=== PATIENT | female | born 1980 | race Caucasian/White ===

== ENCOUNTER 2016-11-17 17:51 | Emergency (ER) | payer SELFPAY ==
[2016-11-17 18:02] VITALS: BP 143/88; BMI 25.2
[2016-11-17] MEDS ORDERED: PHENERGAN INJ 25 MG IM ONE (18:16)
[2016-11-17] MEDS ORDERED: DEMEROL INJ IM ONE (18:16)
[2016-11-17] MEDS ORDERED: DEMEROL INJ ONE (18:22)
[2016-11-17] MEDS ORDERED: PHENERGAN INJ 25 MG ONE (18:22)
[2016-11-17] MEDS ORDERED: XYLOCAINE 2% and EPINEPHRINE 1:100,000 ONE (18:28)
--- NOTE | 2016-11-17 18:37 | DR.GENAD ---
HPI - PCP Primary Care Physician: none - HPI Comment HPI Comment: Worsening swelling and painful sore at the top of her buttocks for the past two days; she put in a pin in it yesterday to release the fluid and it' s worse today; she started a left over abx from another "cellulitis" that started with a c yesterday but developed n/v x several episodes with the last earlier this morning; she has had little improvement since taking it; tylenol # 3 hasn't helped the pain - Complaint/Symptoms Chief Complaint:: "abscess at the top of my butt, glands swelling, vomiting, fever - Source History Provided: Patient - Mode of Arrival Mode of Arrival: Ambulatory - Timing Onset of Chief Complaint: 11/14/16 PMH - PMH Past Medical History: Yes Past Medical History: Anxiety Past Surgical History: Yes Surgical History: Cholecystectomy, Tonsillectomy - Family History History of Family Medical Conditions: Yes Family Medical History: Cancer, Hypertension - Social History Does patient currently use any type of tobacco product: Yes Have you used tobacco products in the last 12 months: Yes Type of Tobacco Use: Cigarettes How many years tobacco product used: 15 Does any household member use tobacco: No Alcohol Use: Occasionally Do you use any recreational Drugs:: No Lives With: Family Lives Where: Home - infectious screening In the last 2 months have you had wt loss of >10#?: NO Have you had fever, night sweats or hemotysis?: No Have you traveled outside the country in the last 6 months?: No Isolation: Standard ROS - Review of Systems Constitutional: No Symptoms Reported Respiratoy: No Symptoms Reported Cardiovascular: No Symptoms Reported Gastrointestinal/Abdominal: No Symptoms Reported Genitourinary: No Symptoms Reported Neurological: No Symptoms Reported Musculoskeletal: No Symptoms Reported Integumentary: See HPI PE - Vital Signs Vitals: Temperature 98 F Pulse Rate 100 Respiratory Rate 20 Blood Pressure 143/88 O2 Sat by Pulse Oximetry 100 - General Limitations: No Limitations General Appearance: Alert, Other (in pain) - Head Head Exam: Normal Inspection - Eyes Eye exam: Normal Appearance - Respiratory Respiratory Exam: Bilateral Clear to Auscultation - Cardiovascular Cardiovascular Exam: Regular Rate, Normal Rhythm - Abdominal Exam Abdominal Exam: Normal Inspection - Extremities Extremities Exam: Normal Inspection - Neurologic Neurological Exam: Alert, Oriented X3 - Skin Skin Exam: Warm (firm 2cm tender red nodule at crest of buttocks, induration extends into the left buttock; tender, shoddy left groin lad) Procedures - Procedure Comments Procedures: site cleaned with betadine and injected w/5cc lidocaine w/epi; incision made with 15-20 cc purulent/minimal bloody material released; pt tolerated well - Incision and Drainage Blade Size: 11 I & D Procedure: betadine prep, sterile drapes applied - Diagnosis Discharge Problem: Abscess - Discharge Plan Disposition: HOME, SELF-CARE Condition: Stable Prescriptions: Hydrocodone-Acet 7.5 mg/325 mg [NORCO 7.5 MG/325 MG *] 1 tab PO Q6H PRN #14 tab PRN Reason: Pain Sulfamethoxazole-Trimethoprim [BACTRIM DS TAB 800/160 MG *] 1 tab PO BID #20 tab - Follow ups/Referrals Follow ups/Referrals: RE JUÁREZ [STAFF PHYSICIAN] - 3 days - Instructions Instructions: Abscess Additional Instructions: keep loosely bandaged as long as there is drainage follow up jonathan if unable to hold medication down finish ALL the antibiotic
[2016-11-17] MEDS ORDERED: XYLOCAINE 2% and EPINEPHRINE 1:100,000 IM SCH (19:00)
[2016-11-17] MEDS ORDERED: ROCEPHIN VIAL 1 GM IM ONE (19:08)
[2016-11-17] MEDS ORDERED: XYLOCAINE 1 % (PLAIN) ONE (19:14)
[2016-11-17] MEDS ORDERED: ROCEPHIN VIAL 1 GM ONE (19:15)
== END 2016-11-17 19:43 | disposition home or self-care (01) ==
LOC: ER 18:04
PROC: 0H98X0Z Drainage of Buttock Skin with Drainage Device, External Approach (ICD-10-PCS; principal; 2016-11-17)
DX: L02.31 Cutaneous abscess of buttock (principal)
CPT/HCPCS: 10060; 87070; 87075; 87077; 87186; 87205; 96372; 99282; 99283; J0696; J2001; J2175; J2550

== ENCOUNTER 2017-02-07 22:13 | Emergency (ER) | payer SELFPAY ==
[2017-02-07 22:23] VITALS: BP 127/84; BMI 26.1
--- NOTE | 2017-02-07 23:10 | DR.GENAD ---
HPI - PCP Primary Care Physician: NFD - Complaint/Symptoms Chief Complaint Doctors Comments: REDNESS, SWELLING AND PAIN RIGHT INNER FOREARM. Chief Complaint:: "Not sure but something has bite me and it just seems to be getting worst." - Nurses notes reviewed Nurses Notes Review: Yes - Source History Provided: Patient - Mode of Arrival Mode of Arrival: Ambulatory - Timing Onset of Chief Complaint: 02/05/17 Came on: Suddenly - Duration Duration: Constant Duration: Days - Severity Severity: Moderate PMH - PMH Past Medical History: Yes Past Medical History: Anxiety Past Surgical History: Yes Surgical History: Cholecystectomy, Tonsillectomy - Family History History of Family Medical Conditions: Yes Family Medical History: Cancer, Hypertension - Social History Alcohol Use: None Do you use any recreational Drugs:: No Lives With: Family Lives Where: Home - infectious screening Have you traveled outside the country in the last 6 months?: No ROS - Review of Systems Constitutional: No Symptoms Reported Eyes: No Symptoms Reported ENTM: No Symptoms Reported Respiratoy: No Symptoms Reported Cardiovascular: No Symptoms Reported Gastrointestinal/Abdominal: No Symptoms Reported Genitourinary: No Symptoms Reported Neurological: No Symptoms Reported Musculoskeletal: Right, Forearm Integumentary: Lesions (CELLULITIS RIGHT INNER FOREARM.) Hematologic/Lymphatic: No Symptoms Reported Endocrine: No Symptoms Reported All Other Systems: Reviewed and Negative PE - Vital Signs Vitals: Temperature 97.6 F Pulse Rate 96 Respiratory Rate 18 Blood Pressure 127/84 O2 Sat by Pulse Oximetry 100 - General Limitations: No Limitations General Appearance: Alert - Head Head Exam: Normal Inspection - Eyes Eye exam: Normal Appearance - ENT ENT Exam: Normal External Ear Exam External Ear Exam: Normal External Inspection Mouth Exam: Normal Inspection Throat Exam: Normal Inspection - Neck Neck Exam: Trachea Midline - Chest Chest Inspection: Symmetric Chest Wall Rise - Respiratory Respiratory Exam: Normal Lung Sounds Bilat Respiratory Exam: Bilateral Clear to Auscultation - Cardiovascular Cardiovascular Exam: Regular Rate, Normal Rhythm, Normal Heart Sounds - Abdominal Exam Abdominal Exam: Normal Inspection - Extremities Extremities Exam: Tenderness (REDNESS INNER DISTAL RIGHT FOREARM WITH TENDERNESS.) - Back Back Exam: Normal Inspection - Neurologic Neurological Exam: Alert, Oriented X3 - Psychiatric Psychiatric Exam: Normal Affect, Normal Mood - Skin Skin Exam: Erythema (CELLULITIS INNER RT ARM.) MDM - Differential Diagnosis Differential Diagnosis: CELLULITIS Course - Treatment Treatment: SEE ORDERS - Education/Counseling Education/Counseling: Patient, Education Educated On: Diagnosis, Needs for Follow Up - Diagnosis Discharge Problem: Cellulitis Qualifiers: Site of cellulitis: extremity Site of cellulitis of extremity: upper extremity Laterality: right Qualified Code(s): L03.113 - Cellulitis of right upper limb - Discharge Plan Disposition: 01 HOME, SELF-CARE Condition: Stable Prescriptions: Acetaminophen with Codeine [Tylenol/Codeine #3 300-30 mg] 1 tab PO Q4-6H PRN # 15 tab PRN Reason: Pain Ibuprofen [MOTRIN TAB 600 MG *] 600 mg PO TID PRN #20 tab PRN Reason: Pain/Inflammation Sulfamethoxazole-Trimethoprim [BACTRIM DS TAB 800/160 MG *] 1 tab PO Q8H #20 tab - Follow ups/Referrals Follow ups/Referrals: NFD,None [Primary Care Provider] - 2 days CLEO GAMBINO [STAFF PHYSICIAN] - 2 days - Instructions Instructions: Cellulitis Additional Instructions: RETURN TO ED IF WORSE.
[2017-02-07] MEDS ORDERED: BACTRIM DS TAB PO ONE ×2 (23:11→23:14)
[2017-02-07] MEDS ORDERED: TYLENOL #3 TAB (W/CODEINE) PO ONE ×2 (23:11→23:14)
[2017-02-07] MEDS ORDERED: MOTRIN TAB 600 MG PO ONE ×2 (23:12→23:14)
== END 2017-02-07 23:32 | disposition home or self-care (01) ==
LOC: ER 22:26
DX: L03.113 Cellulitis of right upper limb (principal)
CPT/HCPCS: 99282

== ENCOUNTER 2017-02-13 16:45 | Emergency (ER) | payer SELFPAY ==
[2017-02-13 16:50] VITALS: BP 121/98; BMI 26.1
--- NOTE | 2017-02-13 17:01 | DR.GENAD ---
HPI - PCP Primary Care Physician: nfd - Complaint/Symptoms Chief Complaint:: has a spider bite on her right wrist and was seen in the er last week but now she is weak and nauseated. she stated she feels bad. - Nurses notes reviewed Nurses Notes Review: Yes - Source History Provided: Patient - Mode of Arrival Mode of Arrival: Ambulatory - Timing Onset of Chief Complaint: 02/09/17 Came on: Gradually - Duration Duration: Constant How lon Duration: Days - Location Location: right wrist - Severity Severity: Moderate - Modifying Factors Worsens:: activity - Associated Signs and Symptoms Associated Signs and Symptoms: nausea - Other History Other History: on bactrim for spider bite PMH - PMH Past Medical History: Yes Past Medical History: Anxiety Past Surgical History: Yes Surgical History: Cholecystectomy, Tonsillectomy - Family History History of Family Medical Conditions: Yes Family Medical History: Cancer, Hypertension - Social History Does patient currently use any type of tobacco product: Yes Have you used tobacco products in the last 12 months: Yes Type of Tobacco Use: Cigarettes How many years tobacco product used: 10 Does any household member use tobacco: No Alcohol Use: Rarely Do you use any recreational Drugs:: No Lives With: Family Lives Where: Home - infectious screening In the last 2 months have you had wt loss of >10#?: NO Have you had fever, night sweats or hemotysis?: No Have you traveled outside the country in the last 6 months?: No Isolation: Standard ROS - Review of Systems Constitutional: No Symptoms Reported Eyes: No Symptoms Reported ENTM: No Symptoms Reported Respiratoy: No Symptoms Reported Cardiovascular: No Symptoms Reported Gastrointestinal/Abdominal: Nausea Genitourinary: No Symptoms Reported Neurological: Weakness Musculoskeletal: No Symptoms Reported Integumentary: No Symptoms Reported Hematologic/Lymphatic: No Symptoms Reported Endocrine: No Symptoms Reported Psychiatric: Anxiety PE - Vital Signs Vitals: Temperature 97.9 F Pulse Rate 114 Respiratory Rate 16 Blood Pressure 121/98 O2 Sat by Pulse Oximetry 100 ROR - Labs Reviewed Result Diagrams: 02/13/17 17:17 02/13/17 17:17 Laboratory: WBC 8.8 X10^3/uL (3.6-10.0) 02/13/17 17:17 RBC 4.55 X10^6/uL (3.5-5.4) 02/13/17 17:17 Hgb 14.4 g/dL (12.0-16.0) 02/13/17 17:17 Hct 42.3 % (36.0-47.0) 02/13/17 17:17 MCV 92.9 fL (80.0-100.0) 02/13/17 17:17 MCH 31.7 pg (27.0-34.0) 02/13/17 17:17 MCHC 34.1 g/dL (33.0-35.0) 02/13/17 17:17 RDW 12.8 % (11.6-16.5) 02/13/17 17:17 Plt Count 313 X10^3/uL (150.0-450.0) 02/13/17 17:17 MPV 8.4 fL (7.4-11.0) 02/13/17 17:17 Neut % 59.1 % (42.0-75.0) 02/13/17 17:17 Lymph % 29.2 % (21.0-51.0) 02/13/17 17:17 [place] % 8.5 % (0.0-13.0) 02/13/17 17:17 Eos % 2.1 % (0.9-2.9) 02/13/17 17:17 Baso % 1.1 % (0.2-1.0) H 02/13/17 17:17 Neut # 5.2 x10^3/uL (2.2-4.8) H 02/13/17 17:17 Lymph # 2.6 X10^3/uL (1.3-2.9) 02/13/17 17:17 [place] # 0.8 x10^3/uL (0.3-0.8) 02/13/17 17:17 Eos # 0.2 x10^3/uL (0.0-0.2) 02/13/17 17:17 Baso # 0.1 X10^3/uL (0.0-0.1) 02/13/17 17:17 Absolute Nucleated RBC 0.0 /100WBC 02/13/17 17:17 Sodium 136 mmol/L (136-145) 02/13/17 17:17 Corrected Sodium TNP 02/13/17 17:17 Potassium 4.0 mmol/L (3.5-5.1) 02/13/17 17:17 Chloride 101 mmol/L (98-107) 02/13/17 17:17 Carbon Dioxide 28.6 mmol/L (21-32) 02/13/17 17:17 BUN 8 mg/dL (7-18) 02/13/17 17:17 Creatinine 0.73 mg/dL (0.55-1.02) 02/13/17 17:17 Est GFR (MDRD) Af Amer > 60 (>60) 02/13/17 17:17 Est GFR (MDRD) Non-Af > 60 (>60) 02/13/17 17:17 Glucose 83 mg/dL (65-99) 02/13/17 17:17 Calcium 8.9 mg/dL (8.5-10.1) 02/13/17 17:17 Corrected Calcium TNP 02/13/17 17:17 Total Bilirubin 0.20 mg/dL (0.2-1.0) 02/13/17 17:17 AST 15 Units/L (15-37) 02/13/17 17:17 ALT 19 Units/L (12-78) 02/13/17 17:17 Alkaline Phosphatase 86 Units/L (46-116) 02/13/17 17:17 Total Protein 8.0 g/dL (6.4-8.2) 02/13/17 17:17 Albumin 3.8 g/dL (3.4-5.0) 02/13/17 17:17 Globulin 4.2 g/dL (2.5-4.5) 02/13/17 17:17 Albumin/Globulin Ratio 0.9 Ratio (1.1-2.1) L 02/13/17 17:17 Specimen Type Clean catch urine 02/13/17 17:17 Urine Color Yellow (YELLOW) 02/13/17 17:17 Urine Appearance Clear (CLEAR) 02/13/17 17:17 Urine pH 5.0 (5.0 - 8.0) 02/13/17 17:17 Ur Specific [place] 1.015 (1.000-1.030) 02/13/17 17:17 Urine Protein Negative (NEGATIVE) 02/13/17 17:17 Urine Glucose (UA) 3+ (NEGATIVE) 02/13/17 17:17 Urine Ketones Negative (NEGATIVE) 02/13/17 17:17 Urine Occult Blood 1+ (NEGATIVE) 02/13/17 17:17 Urine Nitrite Negative (NEGATIVE) 02/13/17 17:17 Urine Bilirubin Negative (NEGATIVE) 02/13/17 17:17 Urine Urobilinogen Normal (NORMAL) 02/13/17 17:17 Ur Leukocyte Esterase Negative (NEGATIVE) 02/13/17 17:17 Urine RBC 0-2 /HPF (NEGATIVE) 02/13/17 17:17 Urine WBC None seen /HPF (NEGATIVE) 02/13/17 17:17 Ur Squamous Epith Cells Numerous /HPF (NEGATIVE) 02/13/17 17:17 Ur Transition Epith Cell Rare /HPF (NEGATIVE) 02/13/17 17:17 Urine Bacteria Trace /HPF (NEGATIVE) 02/13/17 17:17 Ur Culture Indicated? No/not indicated 02/13/17 17:17 Urine Opiates Screen Negative (NEG=<300) 02/13/17 17:17 Urine Methadone Screen Negative (NEG=<300) 02/13/17 17:17 Ur Barbiturates Screen Negative (NEG=<200) 02/13/17 17:17 Ur Phencyclidine Scrn Negative (NEG=<25) 02/13/17 17:17 Ur Amphetamines Screen Positive (NEG=<1000) A 02/13/17 17:17 U Benzodiazepines Scrn Negative (NEG=<200) 02/13/17 17:17 Urine Cocaine Screen Negative (NEG=<300) 02/13/17 17:17 U Marijuana (THC) Screen Negative (NEG=<50) 02/13/17 17:17 - Diagnosis Discharge Problem: Amphetamine abuse - Discharge Plan Condition: Stable Prescriptions: Ondansetron [Zofran Odt] 4 mg PO Q8H PRN #12 tab PRN Reason: Nausea/Vomiting - Follow ups/Referrals Follow ups/Referrals: NFD,None [Primary Care Provider] - 3 days - Instructions
[2017-02-13] MEDS ORDERED: ZOFRAN TAB 4 MG PO ONE (17:08)
[2017-02-13] MEDS ORDERED: ZOFRAN TAB 4 MG ONE (17:11)
[2017-02-13 17:29] LABS: BASOPHILS # (AUTO) 0.1 X10^3/uL (0.0-0.1); BASOPHILS % (AUTO) 1.1 % (0.2-1.0); EOSINOPHILS # (AUTO) 0.2 x10^3/uL (0.0-0.2); EOSINOPHILS % (AUTO) 2.1 % (0.9-2.9); HEMATOCRIT 42.3 % (36.0-47.0); HEMOGLOBIN 14.4 g/dL (12.0-16.0); LYMPHOCYTES # (AUTO) 2.6 X10^3/uL (1.3-2.9); LYMPHOCYTES % (AUTO) 29.2 % (21.0-51.0); MEAN CORPUSCULAR HEMOGLOBIN 31.7 pg (27.0-34.0); MEAN CORPUSCULAR HGB CONC 34.1 g/dL (33.0-35.0); MEAN CORPUSCULAR VOLUME 92.9 fL (80.0-100.0); MEAN PLATELET VOLUME 8.4 fL (7.4-11.0); MONOCYTES # (AUTO) 0.8 x10^3/uL (0.3-0.8); MONOCYTES % (AUTO) 8.5 % (0.0-13.0); NEUTROPHILS # (AUTO) 5.2 x10^3/uL (2.2-4.8); NEUTROPHILS % (AUTO) 59.1 % (42.0-75.0); PLATELET COUNT 313 X10^3/uL (150.0-450.0); RED BLOOD COUNT 4.55 X10^6/uL (3.5-5.4); RED CELL DISTRIBUTION WIDTH 12.8 % (11.6-16.5); WHITE BLOOD COUNT 8.8 X10^3/uL (3.6-10.0)
[2017-02-13 17:34] LABS: BILIRUBIN,URINE NEGATIVE (NEGATIVE); BLOOD/HEMOGLOBIN,URINE 1+ (NEGATIVE); GLUCOSE, URINE 3+ (NEGATIVE); KETONES,URINE NEGATIVE (NEGATIVE); LEUKOCYTE ESTERASE ,URINE NEGATIVE (NEGATIVE); NITRITES,URINE NEGATIVE (NEGATIVE); PROTEIN,URINE NEGATIVE (NEGATIVE); UROBILINOGEN,URINE NORMAL (NORMAL)
[2017-02-13 17:41] LABS: APPEARANCE,URINE CLEAR (CLEAR); BACTERIA,URINE TRACE /HPF (NEGATIVE); COLOR,URINE YELLOW (YELLOW); RBC,URINE 0-2 /HPF (NEGATIVE); SQUAMOUS EPITHELIAL CELL,UR NUMEROUS /HPF (NEGATIVE)
[2017-02-13 17:42] LABS: ALANINE AMINOTRANSFERASE 19 Units/L (12-78); ALBUMIN 3.8 g/dL (3.4-5.0); ALKALINE PHOSPHATASE 86 Units/L (46-116); ASPARTATE AMINO TRANSFERASE 15 Units/L (15-37); BLOOD UREA NITROGEN 8 mg/dL (7-18); CALCIUM 8.9 mg/dL (8.5-10.1); CARBON DIOXIDE 28.6 mmol/L (21-32); CHLORIDE 101 mmol/L (98-107); CREATININE 0.73 mg/dL (0.55-1.02); GLUCOSE 83 mg/dL (65-99); SODIUM 136 mmol/L (136-145); eGFR BLACK RACES > 60 (>60); eGFR NON BLACK RACES > 60 (>60)
== END 2017-02-13 17:59 | disposition home or self-care (01) ==
LOC: ER 16:52
DX: F15.10 Other stimulant abuse, uncomplicated (principal); W57.XXXA Bitten or stung by nonvenomous insect and other nonvenomous arthropods, initial encounter
CPT/HCPCS: 36415; 80053; 80307; 81001; 85025; 99282; S0181; G0434

== ENCOUNTER 2017-02-26 13:12 | Emergency (ER) | payer SELFPAY ==
[2017-02-26 13:18] VITALS: BP 119/92; BMI 26.8
--- NOTE | 2017-02-26 13:58 | DR.NAUSEAF ---
HPI - Time Seen Time seen: 13:55 - Primary Care Physician Primary Care Physician: NFD - Complaints Chief Complaint Doctors Comments: Patient admits to nausea for two days with abdominal pain. She denies fever.but diarrhea x two. She denies fever but admits to stomach pain Chief Complaint:: N/V, CRAMPS IN LOWER ABDOMEN AND IN FEET AND LEGS Self Treatment fo Chief Complaint: PHENERGAN - Source History Provided: Patient - Mode of Arrival Mode of Arrival: Ambulatory - Timing Onset of Chief Complaint: 02/25/17 PMH - PMH Past Medical History: No Past Medical History: Anxiety Past Surgical History: Yes Surgical History: Cholecystectomy, Tonsillectomy - Family History History of Family Medical Conditions: Yes Family Medical History: Hypertension - Social History Does patient currently use any type of tobacco product: Yes Have you used tobacco products in the last 12 months: Yes Type of Tobacco Use: Cigarettes How many years tobacco product used: 18 Does any household member use tobacco: No Alcohol Use: None Do you use any recreational Drugs:: No Lives With: Family Lives Where: Home - infectious screening In the last 2 months have you had wt loss of >10#?: NO Have you had fever, night sweats or hemotysis?: No Have you traveled outside the country in the last 6 months?: No Isolation: Standard ROS - Review of Systems Eyes: No Symptoms Reported ENTM: No Symptoms Reported Respiratoy: No Symptoms Reported Cardiovascular: No Symptoms Reported Gastrointestinal/Abdominal: Abdominal Pain Genitourinary: No Symptoms Reported Neurological: No Symptoms Reported Musculoskeletal: No Symptoms Reported Integumentary: No Symptoms Reported Hematologic/Lymphatic: No Symptoms Reported Endocrine: No Symptoms Reported Psychiatric: No Symptoms Reported All Other Systems: Reviewed and Negative PE - Vital Signs Vitals: Temperature 97.6 F Pulse Rate 99 Respiratory Rate 16 Blood Pressure 119/92 O2 Sat by Pulse Oximetry 100 - General General Appearance: Alert, In No Apparent Distress - Head Head Exam: Normal Inspection, Atraumatic - Eyes Eye exam: Normal Appearance, PERRL, EOMI - ENT ENT Exam: Normal Exam - Neck Neck Exam: Normal Inspection - Chest Chest Inspection: Normal Inspection - Respiratory Respiratory Exam: Normal Lung Sounds Bilat Respiratory Exam: Bilateral Clear to Auscultation - Cardiovascular Cardiovascular Exam: Regular Rate, Normal Rhythm - Abdominal Exam Abdominal Exam: Normal Inspection, Normal Bowel Sounds Abdominal Tenderness: Suprapubic - Rectal Rectal Exam: Deferred - External Exam: Female: Deferred : Speculum Exam (Female): Deferred : Bimanual Exam (female): Normal Bimanual exam - Extremities Extremities Exam: Normal Inspection - Back Back Exam: Normal Inspection, Full ROM - Neurologic Neurological Exam: Alert, Oriented X3, CN II-XII Intact - Psychiatric Psychiatric Exam: Normal Affect - Skin Skin Exam: Warm, Dry, Intact ROR - Labs Reviewed Result Diagrams: 02/26/17 14:08 02/26/17 14:08 Laboratory: WBC 6.6 X10^3/uL (3.6-10.0) 02/26/17 14:08 RBC 3.88 X10^6/uL (3.5-5.4) 02/26/17 14:08 Hgb 12.2 g/dL (12.0-16.0) 02/26/17 14:08 Hct 36.4 % (36.0-47.0) 02/26/17 14:08 MCV 93.8 fL (80.0-100.0) 02/26/17 14:08 MCH 31.5 pg (27.0-34.0) 02/26/17 14:08 MCHC 33.6 g/dL (33.0-35.0) 02/26/17 14:08 RDW 13.0 % (11.6-16.5) 02/26/17 14:08 Plt Count 213 X10^3/uL (150.0-450.0) 02/26/17 14:08 MPV 8.6 fL (7.4-11.0) 02/26/17 14:08 Neut % 54.8 % (42.0-75.0) 02/26/17 14:08 Lymph % 34.4 % (21.0-51.0) 02/26/17 14:08 [place] % 8.1 % (0.0-13.0) 02/26/17 14:08 Eos % 2.0 % (0.9-2.9) 02/26/17 14:08 Baso % 0.7 % (0.2-1.0) 02/26/17 14:08 Neut # 3.6 x10^3/uL (2.2-4.8) 02/26/17 14:08 Lymph # 2.3 X10^3/uL (1.3-2.9) 02/26/17 14:08 [place] # 0.5 x10^3/uL (0.3-0.8) 02/26/17 14:08 Eos # 0.1 x10^3/uL (0.0-0.2) 02/26/17 14:08 Baso # 0.0 X10^3/uL (0.0-0.1) 02/26/17 14:08 Absolute Nucleated RBC 0.0 /100WBC 02/26/17 14:08 Sodium 142 mmol/L (136-145) 02/26/17 14:08 Corrected Sodium TNP 02/26/17 14:08 Potassium 4.1 mmol/L (3.5-5.1) 02/26/17 14:08 Chloride 108 mmol/L (98-107) H 02/26/17 14:08 Carbon Dioxide 29.8 mmol/L (21-32) 02/26/17 14:08 BUN 12 mg/dL (7-18) 02/26/17 14:08 Creatinine 0.61 mg/dL (0.55-1.02) 02/26/17 14:08 Est GFR (MDRD) Af Amer > 60 (>60) 02/26/17 14:08 Est GFR (MDRD) Non-Af > 60 (>60) 02/26/17 14:08 Glucose 82 mg/dL (65-99) 02/26/17 14:08 Calcium 7.9 mg/dL (8.5-10.1) L 02/26/17 14:08 Corrected Calcium 8.5 mg/dL (8.5-10.1) 02/26/17 14:08 Total Bilirubin 0.30 mg/dL (0.2-1.0) 02/26/17 14:08 AST 15 Units/L (15-37) 02/26/17 14:08 ALT 24 Units/L (12-78) 02/26/17 14:08 Alkaline Phosphatase 71 Units/L (46-116) 02/26/17 14:08 C-Reactive Protein 2.40 mg/L (0-3.0) 02/26/17 14:08 Total Protein 6.7 g/dL (6.4-8.2) 02/26/17 14:08 Albumin 3.3 g/dL (3.4-5.0) L 02/26/17 14:08 Globulin 3.4 g/dL (2.5-4.5) 02/26/17 14:08 Albumin/Globulin Ratio 1.0 Ratio (1.1-2.1) L 02/26/17 14:08 Specimen Type Clean catch urine 02/26/17 14:10 Urine Color Yellow (YELLOW) 02/26/17 14:10 Urine Appearance Slightly hazy (CLEAR) 02/26/17 14:10 Urine pH 7.0 (5.0 - 8.0) 02/26/17 14:10 Ur Specific [place] 1.015 (1.000-1.030) 02/26/17 14:10 Urine Protein Negative (NEGATIVE) 02/26/17 14:10 Urine Glucose (UA) 1+ (NEGATIVE) 02/26/17 14:10 Urine Ketones Negative (NEGATIVE) 02/26/17 14:10 Urine Occult Blood Negative (NEGATIVE) 02/26/17 14:10 Urine Nitrite Negative (NEGATIVE) 02/26/17 14:10 Urine Bilirubin Negative (NEGATIVE) 02/26/17 14:10 Urine Urobilinogen Normal (NORMAL) 02/26/17 14:10 Ur Leukocyte Esterase Negative (NEGATIVE) 02/26/17 14:10 Urine RBC None seen /HPF (NEGATIVE) 02/26/17 14:10 Urine WBC 0-1 /HPF (NEGATIVE) 02/26/17 14:10 Ur Squamous Epith Cells Many /HPF (NEGATIVE) 02/26/17 14:10 Amorphous Sediment 2+ /HPF (NEGATIVE) 02/26/17 14:10 Urine Bacteria Trace /HPF (NEGATIVE) 02/26/17 14:10 Ur Culture Indicated? No/not indicated 02/26/17 14:10 - Diagnosis Discharge Problem: Nausea and vomiting in adult patient - Discharge Plan Condition: Stable - Follow ups/Referrals Follow ups/Referrals: NFD,None [Primary Care Provider] - 3 days - Instructions
[2017-02-26] MEDS ORDERED: NS 1000 ML 1,000 ML IV ONE (14:00)
[2017-02-26] MEDS ORDERED: BENTYL I.M. INJ 10 MG IM ONE ×2 (14:00→14:11)
[2017-02-26] MEDS ORDERED: ZOFRAN INJ 4 MG VIAL IVP ONE (14:00)
[2017-02-26] MEDS ORDERED: ZOFRAN INJ 4 MG VIAL ONE (14:03)
[2017-02-26] MEDS ORDERED: BENTYL CAP 10 MG PO ONE (14:03)
[2017-02-26] MEDS ORDERED: NS 1000 ML 1,000 ML ONE (14:03)
[2017-02-26 14:20] LABS: BASOPHILS % (AUTO) 0.7 % (0.2-1.0); EOSINOPHILS # (AUTO) 0.1 x10^3/uL (0.0-0.2); HEMATOCRIT 36.4 % (36.0-47.0); HEMOGLOBIN 12.2 g/dL (12.0-16.0); LYMPHOCYTES # (AUTO) 2.3 X10^3/uL (1.3-2.9); LYMPHOCYTES % (AUTO) 34.4 % (21.0-51.0); MEAN CORPUSCULAR HEMOGLOBIN 31.5 pg (27.0-34.0); MEAN CORPUSCULAR HGB CONC 33.6 g/dL (33.0-35.0); MEAN CORPUSCULAR VOLUME 93.8 fL (80.0-100.0); MEAN PLATELET VOLUME 8.6 fL (7.4-11.0); MONOCYTES # (AUTO) 0.5 x10^3/uL (0.3-0.8); MONOCYTES % (AUTO) 8.1 % (0.0-13.0); NEUTROPHILS # (AUTO) 3.6 x10^3/uL (2.2-4.8); NEUTROPHILS % (AUTO) 54.8 % (42.0-75.0); PLATELET COUNT 213 X10^3/uL (150.0-450.0); RED BLOOD COUNT 3.88 X10^6/uL (3.5-5.4); WHITE BLOOD COUNT 6.6 X10^3/uL (3.6-10.0)
[2017-02-26 14:22] LABS: BILIRUBIN,URINE NEGATIVE (NEGATIVE); BLOOD/HEMOGLOBIN,URINE NEGATIVE (NEGATIVE); GLUCOSE, URINE 1+ (NEGATIVE); KETONES,URINE NEGATIVE (NEGATIVE); LEUKOCYTE ESTERASE ,URINE NEGATIVE (NEGATIVE); NITRITES,URINE NEGATIVE (NEGATIVE); PROTEIN,URINE NEGATIVE (NEGATIVE); UROBILINOGEN,URINE NORMAL (NORMAL)
[2017-02-26 14:29] LABS: ALANINE AMINOTRANSFERASE 24 Units/L (12-78); ALBUMIN 3.3 g/dL (3.4-5.0); ALKALINE PHOSPHATASE 71 Units/L (46-116); ASPARTATE AMINO TRANSFERASE 15 Units/L (15-37); BLOOD UREA NITROGEN 12 mg/dL (7-18); CALCIUM 7.9 mg/dL (8.5-10.1); CARBON DIOXIDE 29.8 mmol/L (21-32); CHLORIDE 108 mmol/L (98-107); COR CA(FOR HYPOALB) 8.5 mg/dL (8.5-10.1); CREATININE 0.61 mg/dL (0.55-1.02); GLUCOSE 82 mg/dL (65-99); SODIUM 142 mmol/L (136-145); TOTAL PROTEIN 6.7 g/dL (6.4-8.2); eGFR BLACK RACES > 60 (>60); eGFR NON BLACK RACES > 60 (>60)
[2017-02-26 14:40] LABS: APPEARANCE,URINE SLIGHTLY HAZY (CLEAR); COLOR,URINE YELLOW (YELLOW); RBC,URINE NONE SEEN /HPF (NEGATIVE); SQUAMOUS EPITHELIAL CELL,UR MANY /HPF (NEGATIVE)
[2017-02-26 14:41] LABS: AMORPHOUS SEDIMENT,UR 2+ /HPF (NEGATIVE); BACTERIA,URINE TRACE /HPF (NEGATIVE)
== END 2017-02-26 15:34 | disposition home or self-care (01) ==
LOC: ER 13:32
DX: R11.2 Nausea with vomiting, unspecified (principal)
CPT/HCPCS: 36415; 80053; 81001; 85025; 86140; 96365; 96374; 99283; A4222; J0500; J2405

== ENCOUNTER 2017-05-03 16:34 | Emergency (ER) | payer SELFPAY ==
[2017-05-03 16:39] VITALS: BP 141/83; BMI 29.3
--- NOTE | 2017-05-03 17:42 | DR.GENAD ---
HPI - PCP Primary Care Physician: NFD - Complaint/Symptoms Chief Complaint:: "So the past 2 days I have been having stomach cramps, my boobs are hurting, and nausea and vomiting. I have just been feeling really drained. I only want to lay there. I have a thobbing headache today. I took a pregancy test and it had a faint line, but I'm thinking it may be negative. I just feel terrible." Self Treatment fo Chief Complaint: X9 Motrin throuhout the day - Source History Provided: Patient - Mode of Arrival Mode of Arrival: Ambulatory - Timing Onset of Chief Complaint: 05/01/17 PMH - PMH Past Medical History: Yes Past Medical History: Anxiety Past Surgical History: Yes Surgical History: Cholecystectomy, Tonsillectomy - Family History History of Family Medical Conditions: Yes Family Medical History: Hypertension - Social History Does patient currently use any type of tobacco product: Yes Have you used tobacco products in the last 12 months: Yes Type of Tobacco Use: Cigarettes Does any household member use tobacco: No Alcohol Use: None Do you use any recreational Drugs:: No Lives With: Family Lives Where: Home - infectious screening In the last 2 months have you had wt loss of >10#?: NO Have you had fever, night sweats or hemotysis?: No Have you traveled outside the country in the last 6 months?: No Isolation: Standard ROS - Review of Systems Eyes: No Symptoms Reported ENTM: No Symptoms Reported Respiratoy: No Symptoms Reported Cardiovascular: No Symptoms Reported Gastrointestinal/Abdominal: No Symptoms Reported Genitourinary: No Symptoms Reported Neurological: No Symptoms Reported Musculoskeletal: No Symptoms Reported Integumentary: No Symptoms Reported Hematologic/Lymphatic: No Symptoms Reported Endocrine: No Symptoms Reported Psychiatric: No Symptoms Reported All Other Systems: Reviewed and Negative PE - Vital Signs Vitals: Temperature 98.5 F Pulse Rate 97 Respiratory Rate 15 Blood Pressure 141/83 O2 Sat by Pulse Oximetry 100 - General General Appearance: Alert, In No Apparent Distress - Head Head Exam: Normal Inspection, Atraumatic - Eyes Eye exam: Normal Appearance, PERRL, EOMI - ENT ENT Exam: Normal Exam External Ear Exam: Normal External Inspection TM/Canal Exam: Bilateral Normal Nose Exam: Normal Nose Exam Mouth Exam: Normal Inspection Throat Exam: Normal Inspection - Neck Neck Exam: Normal Inspection - Chest Chest Inspection: Normal Inspection - Respiratory Respiratory Exam: Normal Lung Sounds Bilat Respiratory Exam: Bilateral Clear to Auscultation - Cardiovascular Cardiovascular Exam: Regular Rate, Normal Rhythm - Abdominal Exam Abdominal Exam: Normal Inspection, Normal Bowel Sounds Abdominal Tenderness: negative: RUQ, RLQ, LUQ, LLQ, Epigastrium, Suprapubic, Diffuse, Mild, Moderate, Severe, Other - Extremities Extremities Exam: Normal Inspection, Full ROM - Back Back Exam: Normal Inspection, Full ROM - Neurologic Neurological Exam: Alert - Psychiatric Psychiatric Exam: Normal Affect ROR - Labs Reviewed Result Diagrams: 05/03/17 18:03 05/03/17 18:03 Laboratory: WBC 8.6 X10^3/uL (3.6-10.0) 05/03/17 18:03 RBC 4.08 X10^6/uL (3.5-5.4) 05/03/17 18:03 Hgb 12.9 g/dL (12.0-16.0) 05/03/17 18:03 Hct 38.2 % (36.0-47.0) 05/03/17 18:03 MCV 93.6 fL (80.0-100.0) 05/03/17 18:03 MCH 31.7 pg (27.0-34.0) 05/03/17 18:03 MCHC 33.9 g/dL (33.0-35.0) 05/03/17 18:03 RDW 13.2 % (11.6-16.5) 05/03/17 18:03 Plt Count 194 X10^3/uL (150.0-450.0) 05/03/17 18:03 MPV 9.1 fL (7.4-11.0) 05/03/17 18:03 Neut % 61.5 % (42.0-75.0) 05/03/17 18:03 Lymph % 28.7 % (21.0-51.0) 05/03/17 18:03 [place] % 6.5 % (0.0-13.0) 05/03/17 18:03 Eos % 2.5 % (0.9-2.9) 05/03/17 18:03 Baso % 0.8 % (0.2-1.0) 05/03/17 18:03 Neut # 5.3 x10^3/uL (2.2-4.8) H 05/03/17 18:03 Lymph # 2.5 X10^3/uL (1.3-2.9) 05/03/17 18:03 [place] # 0.6 x10^3/uL (0.3-0.8) 05/03/17 18:03 Eos # 0.2 x10^3/uL (0.0-0.2) 05/03/17 18:03 Baso # 0.1 X10^3/uL (0.0-0.1) 05/03/17 18:03 Absolute Nucleated RBC 0.0 /100WBC 05/03/17 18:03 Sodium 138 mmol/L (136-145) 05/03/17 18:03 Corrected Sodium TNP 05/03/17 18:03 Potassium 4.4 mmol/L (3.5-5.1) 05/03/17 18:03 Chloride 106 mmol/L (98-107) 05/03/17 18:03 Carbon Dioxide 26.0 mmol/L (21-32) 05/03/17 18:03 BUN 12 mg/dL (7-18) 05/03/17 18:03 Creatinine 0.64 mg/dL (0.55-1.02) 05/03/17 18:03 Est GFR (MDRD) Af Amer > 60 (>60) 05/03/17 18:03 Est GFR (MDRD) Non-Af > 60 (>60) 05/03/17 18:03 Glucose 92 mg/dL (65-99) 05/03/17 18:03 Calcium 8.4 mg/dL (8.5-10.1) L 05/03/17 18:03 Corrected Calcium TNP 05/03/17 18:03 Total Bilirubin 0.20 mg/dL (0.2-1.0) 05/03/17 18:03 AST 17 Units/L (15-37) 05/03/17 18:03 ALT 23 Units/L (12-78) 05/03/17 18:03 Alkaline Phosphatase 68 Units/L (46-116) 05/03/17 18:03 C-Reactive Protein 2.00 mg/L (0-3.0) 05/03/17 18:03 Total Protein 6.5 g/dL (6.4-8.2) 05/03/17 18:03 Albumin 3.5 g/dL (3.4-5.0) 05/03/17 18:03 Globulin 3.0 g/dL (2.5-4.5) 05/03/17 18:03 Albumin/Globulin Ratio 1.2 Ratio (1.1-2.1) 05/03/17 18:03 Specimen Type Clean catch urine 05/03/17 18:03 Urine Color Yellow (YELLOW) 05/03/17 18:03 Urine Appearance Clear (CLEAR) 05/03/17 18:03 Urine pH 6.0 (5.0 - 8.0) 05/03/17 18:03 Ur Specific [place] 1.020 (1.000-1.030) 05/03/17 18:03 Urine Protein Negative (NEGATIVE) 05/03/17 18:03 Urine Glucose (UA) Negative (NEGATIVE) 05/03/17 18:03 Urine Ketones Negative (NEGATIVE) 05/03/17 18:03 Urine Occult Blood Negative (NEGATIVE) 05/03/17 18:03 Urine Nitrite Negative (NEGATIVE) 05/03/17 18:03 Urine Bilirubin Negative (NEGATIVE) 05/03/17 18:03 Urine Urobilinogen Normal (NORMAL) 05/03/17 18:03 Ur Leukocyte Esterase Negative (NEGATIVE) 05/03/17 18:03 Urine RBC 0-3 /HPF (NEGATIVE) 05/03/17 18:03 Urine WBC 0-3 /HPF (NEGATIVE) 05/03/17 18:03 Ur Squamous Epith Cells Few /HPF (NEGATIVE) 05/03/17 18:03 Urine Bacteria Negative /HPF (NEGATIVE) 05/03/17 18:03 Ur Culture Indicated? No/not indicated 05/03/17 18:03 Streptococcus Screen Negative (NEGATIVE) 05/03/17 18:00 - Diagnosis Discharge Problem: acute viral illness - Discharge Plan Condition: Stable - Follow ups/Referrals Follow ups/Referrals: NFD,None [Primary Care Provider] - 3 days - Instructions
[2017-05-03] MEDS ORDERED: NS 1000 ML 1,000 ML IV ONE (17:53)
[2017-05-03] MEDS ORDERED: ZOFRAN INJ 4 MG VIAL IVP ONE (17:53)
[2017-05-03] MEDS ORDERED: TORADOL 30 MG VIAL IVP ONE (17:54)
[2017-05-03] MEDS ORDERED: NS 1000 ML 1,000 ML ONE (17:55)
[2017-05-03] MEDS ORDERED: TORADOL 30 MG VIAL ONE (17:56)
[2017-05-03] MEDS ORDERED: ZOFRAN INJ 4 MG VIAL ONE (18:10)
[2017-05-03 18:12] LABS: BILIRUBIN,URINE NEGATIVE (NEGATIVE); BLOOD/HEMOGLOBIN,URINE NEGATIVE (NEGATIVE); GLUCOSE, URINE NEGATIVE (NEGATIVE); KETONES,URINE NEGATIVE (NEGATIVE); LEUKOCYTE ESTERASE ,URINE NEGATIVE (NEGATIVE); NITRITES,URINE NEGATIVE (NEGATIVE); PROTEIN,URINE NEGATIVE (NEGATIVE); UROBILINOGEN,URINE NORMAL (NORMAL)
[2017-05-03 18:14] LABS: BASOPHILS # (AUTO) 0.1 X10^3/uL (0.0-0.1); BASOPHILS % (AUTO) 0.8 % (0.2-1.0); EOSINOPHILS # (AUTO) 0.2 x10^3/uL (0.0-0.2); EOSINOPHILS % (AUTO) 2.5 % (0.9-2.9); HEMATOCRIT 38.2 % (36.0-47.0); HEMOGLOBIN 12.9 g/dL (12.0-16.0); LYMPHOCYTES # (AUTO) 2.5 X10^3/uL (1.3-2.9); LYMPHOCYTES % (AUTO) 28.7 % (21.0-51.0); MEAN CORPUSCULAR HEMOGLOBIN 31.7 pg (27.0-34.0); MEAN CORPUSCULAR HGB CONC 33.9 g/dL (33.0-35.0); MEAN CORPUSCULAR VOLUME 93.6 fL (80.0-100.0); MEAN PLATELET VOLUME 9.1 fL (7.4-11.0); MONOCYTES # (AUTO) 0.6 x10^3/uL (0.3-0.8); MONOCYTES % (AUTO) 6.5 % (0.0-13.0); NEUTROPHILS # (AUTO) 5.3 x10^3/uL (2.2-4.8); NEUTROPHILS % (AUTO) 61.5 % (42.0-75.0); PLATELET COUNT 194 X10^3/uL (150.0-450.0); RED BLOOD COUNT 4.08 X10^6/uL (3.5-5.4); RED CELL DISTRIBUTION WIDTH 13.2 % (11.6-16.5); WHITE BLOOD COUNT 8.6 X10^3/uL (3.6-10.0)
[2017-05-03 18:23] LABS: ALANINE AMINOTRANSFERASE 23 Units/L (12-78); ALBUMIN 3.5 g/dL (3.4-5.0); ALKALINE PHOSPHATASE 68 Units/L (46-116); ASPARTATE AMINO TRANSFERASE 17 Units/L (15-37); BLOOD UREA NITROGEN 12 mg/dL (7-18); CALCIUM 8.4 mg/dL (8.5-10.1); CHLORIDE 106 mmol/L (98-107); CREATININE 0.64 mg/dL (0.55-1.02); SODIUM 138 mmol/L (136-145); TOTAL PROTEIN 6.5 g/dL (6.4-8.2); eGFR BLACK RACES > 60 (>60); eGFR NON BLACK RACES > 60 (>60)
[2017-05-03 18:27] LABS: APPEARANCE,URINE CLEAR (CLEAR); BACTERIA,URINE NEGATIVE /HPF (NEGATIVE); COLOR,URINE YELLOW (YELLOW); RBC,URINE 0-3 /HPF (NEGATIVE); SQUAMOUS EPITHELIAL CELL,UR FEW /HPF (NEGATIVE)
== END 2017-05-03 19:21 | disposition home or self-care (01) ==
LOC: ER 16:43
DX: R10.84 Generalized abdominal pain (principal); B34.9 Viral infection, unspecified
CPT/HCPCS: 36415; 80053; 81001; 85025; 86140; 87070; 87880; 96365; 96374; 96375; 99282; 99283; A4222; J1885; J2405

== ENCOUNTER 2017-08-03 21:45 | Emergency (ER) | payer SELFPAY ==
[2017-08-03 21:52] VITALS: BMI 31.9
[2017-08-03] MEDS ORDERED: PHENERGAN INJ 25 MG IM ONE (22:15)
[2017-08-03] MEDS ORDERED: BENTYL I.M. INJ 10 MG IM ONE ×2 (22:15→22:18)
[2017-08-03] MEDS ORDERED: PHENERGAN INJ 25 MG ONE (22:17)
--- NOTE | 2017-08-03 22:20 | DR.GENAD ---
HPI - PCP Primary Care Physician: NFD - Complaint/Symptoms Chief Complaint Doctors Comments: 36 y/o female with presentation of nausea/ vomitting since last night. low grade fever and body aches started today. She has a mostly dry cough and nasal congestion. She feels drained. She denies consuming poorly prepared food or recent travel outside of this area. Chief Complaint:: BODY ACHES, VOMITING, HEADACHE, FEVER; BILATERAL LOWER BACK PAIN Self Treatment fo Chief Complaint: TYLENOL, MEDS FOR NAUSEA - Nurses notes reviewed Nurses Notes Review: Yes - Source History Provided: Patient - Mode of Arrival Mode of Arrival: Ambulatory - Timing Onset of Chief Complaint: 08/02/17 - Modifying Factors Worsens:: nothing Improves:: nothing PMH - PMH Past Medical History: No Past Medical History: Anxiety Past Surgical History: Yes Surgical History: Cholecystectomy, Tonsillectomy - Family History History of Family Medical Conditions: No Family Medical History: Hypertension - Social History Does patient currently use any type of tobacco product: Yes Have you used tobacco products in the last 12 months: Yes Type of Tobacco Use: Cigarettes Alcohol Use: None Do you use any recreational Drugs:: No Lives With: Significant Other Lives Where: Home - infectious screening In the last 2 months have you had wt loss of >10#?: NO Have you had fever, night sweats or hemotysis?: No Have you traveled outside the country in the last 6 months?: No Isolation: Standard ROS - Review of Systems Constitutional: Fever, Malaise Eyes: No Symptoms Reported ENTM: See HPI. negative: Ear Pain, Ear Discharge, Pulling on Ears, Hearing Loss , Nose Pain, Nose Discharge, Epistaxis, Mouth Pain, Mouth Swelling, Loose Teeth , Drooling, Throat Pain, Throat Swelling, Ear Foreign Body Respiratoy: See HPI, Non-Productive Cough. negative: Productive Cough, Moist Cough, Dry Cough, Hacking Cough, Barking Cough, Brassy Cough, Orthopnea, Short of Breath, Stridor, Wheezing, Hemoptysis Cardiovascular: No Symptoms Reported Gastrointestinal/Abdominal: See HPI, Abdominal Pain (described as cramps), Nausea, Vomiting. negative: Constipation, Diarrhea, Food Intolerance Genitourinary: No Symptoms Reported Neurological: No Symptoms Reported Musculoskeletal: No Symptoms Reported Integumentary: No Symptoms Reported Hematologic/Lymphatic: No Symptoms Reported Endocrine: No Symptoms Reported Psychiatric: No Symptoms Reported All Other Systems: Reviewed and Negative PE - Vital Signs Vitals: Temperature 98.7 F Pulse Rate 87 Respiratory Rate 20 Blood Pressure 129/77 O2 Sat by Pulse Oximetry 98 - General Limitations: No Limitations General Appearance: Alert, In No Apparent Distress - Head Head Exam: Normal Inspection - Eyes Eye exam: Normal Appearance, PERRL, EOMI - ENT ENT Exam: Normal Exam - Neck Neck Exam: Normal Inspection, Full ROM, Trachea Midline - Chest Chest Inspection: Normal Inspection, Symmetric Chest Wall Rise - Respiratory Respiratory Exam: Normal Lung Sounds Bilat - Cardiovascular Cardiovascular Exam: Regular Rate, Normal Rhythm - Abdominal Exam Abdominal Exam: Normal Inspection, Normal Bowel Sounds, Soft - Extremities Extremities Exam: Normal Inspection, Full ROM - Back Back Exam: Normal Inspection - Neurologic Neurological Exam: Alert, Oriented X3, CN II-XII Intact - Psychiatric Psychiatric Exam: Normal Affect - Skin Skin Exam: Warm, Dry, Intact, Normal Color ROR - Labs Reviewed Laboratory: Specimen Type Clean catch urine 08/03/17 22:06 Urine Color [place] (YELLOW) 08/03/17 22:06 Urine Appearance Clear (CLEAR) 08/03/17 22:06 Urine pH 6.0 (5.0 - 8.0) 08/03/17 22:06 Ur Specific [place] 1.020 (1.000-1.030) 08/03/17 22:06 Urine Protein 1+ (NEGATIVE) 08/03/17 22:06 Urine Glucose (UA) 2+ (NEGATIVE) 08/03/17 22:06 Urine Ketones Negative (NEGATIVE) 08/03/17 22:06 Urine Occult Blood Negative (NEGATIVE) 08/03/17 22:06 Urine Nitrite Negative (NEGATIVE) 08/03/17 22:06 Urine Bilirubin 1+ (NEGATIVE) 08/03/17 22:06 Urine Urobilinogen 2+ (NORMAL) 08/03/17 22:06 Ur Leukocyte Esterase 1+ (NEGATIVE) 08/03/17 22:06 Urine RBC Rare /HPF (NEGATIVE) 08/03/17 22:06 Urine WBC 1-4 /HPF (NEGATIVE) 08/03/17 22:06 Ur Squamous Epith Cells Moderate /HPF (NEGATIVE) 08/03/17 22:06 Urine Bacteria 1+ /HPF (NEGATIVE) 08/03/17 22:06 Urine Mucus Few /HPF (NEGATIVE) 08/03/17 22:06 Ur Culture Indicated? No/not indicated 08/03/17 22:06 Influenza Type A (PCR) Negative (NEGATIVE) 08/03/17 22:01 Influenza Type B (PCR) Negative (NEGATIVE) 08/03/17 22:01 Streptococcus Screen Negative (NEGATIVE) 08/03/17 22:01 - Diagnosis Discharge Problem: Common cold virus - Discharge Plan Disposition: HOME, SELF-CARE Condition: Stable - Follow ups/Referrals Follow ups/Referrals: NFD,None [Primary Care Provider] - 3 days - Instructions
[2017-08-03 22:29] LABS: BILIRUBIN,URINE 1+ (NEGATIVE); BLOOD/HEMOGLOBIN,URINE NEGATIVE (NEGATIVE); GLUCOSE, URINE 2+ (NEGATIVE); KETONES,URINE NEGATIVE (NEGATIVE); LEUKOCYTE ESTERASE ,URINE 1+ (NEGATIVE); NITRITES,URINE NEGATIVE (NEGATIVE); PROTEIN,URINE 1+ (NEGATIVE); UROBILINOGEN,URINE 2+ (NORMAL)
[2017-08-03 22:40] LABS: APPEARANCE,URINE CLEAR (CLEAR); BACTERIA,URINE 1+ /HPF (NEGATIVE); COLOR,URINE AMBER (YELLOW); MUCUS,URINE FEW /HPF (NEGATIVE); RBC,URINE RARE /HPF (NEGATIVE); SQUAMOUS EPITHELIAL CELL,UR MODERATE /HPF (NEGATIVE)
[2017-08-03] MEDS ORDERED: NAPROSYN PO ONE ×2 (22:50→22:52)
[2017-08-03 23:31] VITALS: BP 114/72
== END 2017-08-03 23:30 | disposition home or self-care (01) ==
LOC: ER 21:55
DX: J00 Acute nasopharyngitis [common cold] (principal)
CPT/HCPCS: 81001; 87070; 87502; 87880; 96372; 99282; J0500; J2550